=== PATIENT | male | born 1990 | race Caucasian/White ===

== ENCOUNTER 2017-10-21 15:43 | Emergency (ER) | payer SELFPAY ==
[2017-10-21 15:45] VITALS: BP 146/86
[2017-10-21] MEDS ORDERED: NAPR-683 PO (15:57)
--- NOTE | 2017-10-21 15:58 | PHYS DOC ---
Past Medical History Past Medical History: No Pertinent History Past Surgical History: Other Additional Past Surgical Histo: PINS IN BOTH HIPS Alcohol Use: Occasionally Drug Use: None Adult General Chief Complaint Chief Complaint: FOOT INJURY PAIN [facility] HPI Patient is a 27 year old male presents to the emergency department with complaints of left foot pain. Patient states 6-8 weeks ago he dropped can on his third toe. Patient states that that area of the foot feels better but approximately 6 weeks ago he developed pain across the plantar aspect of the foot. He states that has persisted. It is worse with ambulation. Patient reports that he is using ibuprofen 800 mg once a day and has puts inserts in his shoes. He has no relief. Review of Systems Review of Systems Constitutional: Denies fever or chills [] Eyes: Denies change in visual acuity, redness, or eye pain [] HENT: Denies nasal congestion or sore throat [] Respiratory: Denies cough or shortness of breath [] Cardiovascular: No additional information not addressed in HPI [] GI: Denies abdominal pain, nausea, vomiting, bloody stools or diarrhea [] : Denies dysuria or hematuria [] Musculoskeletal: Left foot pain Integument: Denies rash or skin lesions [] Neurologic: Denies headache, focal weakness or sensory changes [] Endocrine: Denies polyuria or polydipsia [] All other systems were reviewed and found to be within normal limits, except as documented in this note. Allergies Allergies Allergies Coded Allergies Type Severity Reaction Last Updated Verified No Known Drug Allergies 06/17/14 No Physical Exam Physical Exam Constitutional: Well developed, well nourished, no acute distress, non-toxic appearance. [] Skin: Warm, dry, no erythema, no rash. [] Extremities: Left lower extremity exam: Left ankle exam unremarkable. Left foot without swelling without ecchymosis. No obvious deformity. He has no bony tenderness on exam. He is tender to palpate over the aspect of the foot. Neurovascular intact distally.. Neurologic: Alert and oriented X 3, normal motor function, normal sensory function, no focal deficits noted. [] EKG EKG [] Radiology/Procedures Radiology/Procedures [] Course & Med Decision Making Course & Med Decision Making Pertinent Labs and Imaging studies reviewed. (See chart for details) [] Dragon Disclaimer Dragon Disclaimer This electronic medical record was generated, in whole or in part, using a voice recognition dictation system. Departure Departure Impression: Primary Impression: Plantar fasciitis of left foot Disposition: 01 HOME, SELF-CARE Condition: STABLE Referrals: LETY MAXWELL MD (PCP) Patient Instructions: Plantar Fasciitis Scripts Naproxen (NAPROSYN) 500 Mg Tablet 500 MG PO BID Y for PAIN, #20 TAB Prov: CINDI PERAZA APRN 10/21/17 CINDI PERAZA APRN Oct 21, 2017 15:57
== END 2017-10-21 16:00 | disposition home or self-care (01) ==
LOC: ER 15:43
DX: M72.2 Plantar fascial fibromatosis (principal)
CPT/HCPCS: 99282

== ENCOUNTER 2018-09-28 15:34 | Emergency (ER) | payer OTHER ==
[~2018-09-28] VITALS: Ht 182.9 cm; Wt 122.5 kg
[~2018-09-28 15:34] MED LIST: NAPR-683 PO
[2018-09-28 16:10] VITALS: BP 144/65
[2018-09-28] MEDS ORDERED: CLOT15CR5 TP (16:22)
--- NOTE | 2018-09-28 16:23 | PHYS DOC ---
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 He has several red bumps that are scabbed over and states is very itchy. Patient states that he has tried Benadryl, calamine lotion and then tried cortisone cream last night of which she states made it worse. Review of Systems Review of Systems Constitutional: Denies fever or chills [] Eyes: Denies change in visual acuity, redness, or eye pain [] HENT: Denies nasal congestion or sore throat [] Respiratory: Denies cough or shortness of breath [] Cardiovascular: No additional information not addressed in HPI [] GI: Denies abdominal pain, nausea, vomiting, bloody stools or diarrhea [] : Denies dysuria or hematuria [] Musculoskeletal: Denies back pain or joint pain [] Integument: Left anterior forearm Rash or skin lesions [] Neurologic: Denies headache, focal weakness or sensory changes [] Endocrine: Denies polyuria or polydipsia [] All other systems were reviewed and found to be within normal limits, except as documented in this note. Allergies Allergies Allergies Coded Allergies Type Severity Reaction Last Updated Verified No Known Drug Allergies 06/17/14 No Physical Exam Physical Exam Constitutional: Well developed, well nourished, no acute distress, non-toxic appearance. [] HENT: Normocephalic, atraumatic, bilateral external ears normal, oropharynx moist, no oral exudates, nose normal. [] Eyes: PERRLA, EOMI, conjunctiva normal, no discharge. [] Neck: Normal range of motion, no tenderness, supple, no stridor. [] Cardiovascular:Heart rate regular rhythm, no murmur [] Lungs & Thorax: Bilateral breath sounds clear to auscultation [] Abdomen: Bowel sounds normal, soft, no tenderness, no masses, no pulsatile masses. [] Skin: Warm, dry, no erythema, red, scabbed rash to left anterior forearm. [] Back: No tenderness, no CVA tenderness. [] Extremities: No tenderness, no cyanosis, no clubbing, ROM intact, no edema. [] Neurologic: Alert and oriented X 3, normal motor function, normal sensory function, no focal deficits noted. [] Psychologic: Affect normal, judgement normal, mood normal. 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 He has several red bumps that are scabbed over and states is very itchy. Patient states that he has tried Benadryl, calamine lotion and then tried cortisone cream last night of which she states made it worse. Under the black light the rash blows. Patient has no known drug allergies and takes no medications daily. Patient is giving a prescription for clotrimazole betamethasone cream. Patient follow-up with his primary care if not better within a week. [] Dragon Disclaimer Dragon Disclaimer This electronic medical record was generated, in whole or in part, using a voice recognition dictation system. Departure Departure Impression: Primary Impression: Rash/skin eruption Disposition: HOME, SELF-CARE Condition: STABLE Referrals: LETY MAXWELL MD (PCP) Patient Instructions: Rash Additional Instructions: FOLLOW UP WITH PRIMARY CARE IF NOT GETTING BETTER. Scripts Clotrimazole/Betamethasone Dip (CLOTRIMAZOLE-BETAMETHASONE CRM) 15 Gm Cream..g. 1 DOMINGO TP BID, #30 GM 1 Refill Prov: RICHY MEJIA APRN 09/28/18 RICHY MEJIA APRN Sep 28, 2018 16:23
== END 2018-09-28 16:35 | disposition home or self-care (01) ==
LOC: ER 15:34
DX: R21 Rash and other nonspecific skin eruption (principal); L29.8 Other pruritus
CPT/HCPCS: 99283